=== PATIENT | male | born 1995 | race Caucasian/White ===

== ENCOUNTER 2017-09-09 01:23 | Emergency (ER) | payer OTHER ==
--- NOTE | 2017-09-09 01:56 | ED Physician Documentation ---
PD HPI NVD - Stated complaint Stated Complaint: DIARRHEA - Chief complaint Chief Complaint: Abd Pain - History obtained from History obtained from: Patient - History of Present Illness Timing - onset: Today Timing - details: Gradual onset Pain level now: 0 Associated symptoms: No: Fever, Abdominal pain Improved by: No: Eating, Laying still, Vomiting, BM, Position, Meds Worsened by: Other (no exacerbating factors) Similar symptoms before: Has not had sx before Recently seen: Not recently seen - Additonal information Additional information: c/o diarrhea since this morning, nausea but no vomiting, tolerating PO. intermittent diffuse abdominal cramping pain. Review of Systems Constitutional: denies: Fever Respiratory: reports: Reviewed and negative GI: reports: Abdominal Pain (mild, intermittent/episodic cramping), Nausea, Diarrhea. denies: Vomiting : denies: Dysuria, Frequency PD PAST MEDICAL HISTORY - Past Medical History Past Medical History: No - Past Surgical History Past Surgical History: Yes - Present Medications Home Medications: Ambulatory Orders Medication Instructions Recorded Confirmed Diphenoxylate HCl/Atropine 1 each PO Q6HR PRN #14 tablet 09/09/17 [Diphenoxylate-Atrop 2.5-0.025] Ondansetron Odt [Zofran] 4 mg TL Q6H PRN #10 tablet 09/09/17 - Allergies Allergies/Adverse Reactions: Allergies Allergy/AdvReac Type Severity Reaction Status Date / Time No Known Drug Allergies Allergy Verified 09/09/17 01:29 - Social History Does the pt smoke?: No Smoking Status: Never smoker Does the pt drink ETOH?: Yes Does the pt have substance abuse?: No - Immunizations Immunizations are current?: Yes - POLST Patient has POLST: No PD ED PE NORMAL - Vitals Vital signs reviewed: Yes - General General: Alert and oriented X 3, No acute distress, Well developed/nourished - HEENT HEENT: Moist mucous membranes - Cardiac Cardiac: RRR, No murmur - Respiratory Respiratory: No respiratory distress, Clear bilaterally - Abdomen Abdomen: Normal bowel sounds, Soft, Non tender, Non distended - Derm Derm: Normal color, Warm and dry Results - Vitals Vitals: Vital Signs - 24 hr 09/09/17 09/09/17 01:29 02:33 Temperature 36.2 C L Heart Rate 64 61 Respiratory 16 16 Rate Blood Pressure 161/89 H 141/79 H O2 Saturation 98 98 Oxygen O2 Source Room air PD MEDICAL DECISION MAKING - ED course Complexity details: considered differential, d/w patient ED course: diarrhea with mild abdominal cramping, nontender on abdominal exam. nausea without vomiting and is tolerating PO, MMM on exam. will treat symptoms with zofran and lomotil, defer testing or further treatment until and unless symptoms worsen or new symptoms develop; patient agrees with, and is comfortable with, this plan. Departure - Departure Disposition: Home, Self Care Clinical Impression: Diarrhea Condition: Good Instructions: ED Diarrhea Viral Follow-Up: HALEIGH Huntley [Provider Group] Prescriptions: Diphenoxylate HCl/Atropine [Diphenoxylate-Atrop 2.5-0.025] 1 each PO Q6HR PRN # 14 tablet PRN Reason: Diarrhea Ondansetron Odt [Zofran] 4 mg TL Q6H PRN #10 tablet PRN Reason: Nausea / Vomiting Forms: Activity restrictions Discharge Date/Time: 09/09/17 02:37
[2017-09-09] MEDS ORDERED: ONDANSETRON ODT 4 MG TABLET TL STA (02:15)
[2017-09-09] MEDS ORDERED: DIPHENOX/ATROPINE 2.5/0.025 MG TABLET PO STA (02:15)
[2017-09-09 02:37] VITALS: BP 141/79
== END 2017-09-09 02:37 | disposition home or self-care (01) ==
LOC: ED 01:23
DX: R19.7 Diarrhea, unspecified (principal); R10.9 Unspecified abdominal pain; R11.0 Nausea
CPT/HCPCS: 99283; A9270; Q0162

== ENCOUNTER 2017-10-20 05:44 | Emergency (ER) | payer OTHER ==
[2017-10-20 05:50] VITALS: BP 151/96
[2017-10-20] MEDS ORDERED: ONDANSETRON ODT 4 MG TABLET TL STA (05:53)
--- NOTE | 2017-10-20 06:01 | ED Physician Documentation ---
PD HPI NVD - Stated complaint Stated Complaint: FLU LIKE SYMPTOMS - Chief complaint Chief Complaint: Abd Pain - History obtained from History obtained from: Patient - History of Present Illness Timing - onset: Today Timing - details: Abrupt onset Associated symptoms: Abdominal pain. No: Fever Contributing factors: Sick contact Similar symptoms before: No diagnosis Recently seen: Not recently seen - Additonal information Additional information: Patient is a 22 year old male with no significant past medical history who is presenting to the emergency department for nausea, vomiting and diarrhea. Patient states that his and child had the "flu" this past week. patient woke up overnight due to nausea and had two episodes of vomiting and two episodes of diarrhea. Review of Systems Constitutional: reports: Myalgias. denies: Fever, Chills Eyes: reports: Reviewed and negative Ears: reports: Reviewed and negative Nose: reports: Reviewed and negative Throat: reports: Reviewed and negative Cardiac: denies: Chest pain / pressure Respiratory: denies: Dyspnea, Cough, Wheezing GI: reports: Abdominal Pain, Nausea, Vomiting, Diarrhea. denies: Bloody / black stool : reports: Reviewed and negative Skin: reports: Reviewed and negative Neurologic: denies: Focal weakness, Near syncope, Syncope, Altered mental status Immunocompromised: denies: Immunocompromised PD PAST MEDICAL HISTORY - Past Medical History Past Medical History: No - Past Surgical History Past Surgical History: Yes - Present Medications Home Medications: Ambulatory Orders Medication Instructions Recorded Confirmed Dicyclomine [Bentyl] 10 mg PO QID #14 capsule 10/20/17 Ondansetron Odt [Zofran] 4 mg TL Q6H PRN #14 tablet 10/20/17 - Allergies Allergies/Adverse Reactions: Allergies Allergy/AdvReac Type Severity Reaction Status Date / Time No Known Drug Allergies Allergy Verified 10/20/17 05:50 - Social History Does the pt smoke?: No Smoking Status: Never smoker Does the pt drink ETOH?: Yes Does the pt have substance abuse?: No - Immunizations Immunizations are current?: Yes - POLST Patient has POLST: No PD ED PE NORMAL - Vitals Vital signs reviewed: Yes - General General: Alert and oriented X 3, No acute distress - HEENT HEENT: Atraumatic, PERRL, Moist mucous membranes - Neck Neck: Supple, no meningeal sign - Cardiac Cardiac: RRR, No murmur - Respiratory Respiratory: No respiratory distress - Abdomen Abdomen: Soft, Non distended - Derm Derm: Normal color, Warm and dry, No rash - Extremities Extremities: No deformity, Normal ROM s pain, No calf tenderness / cord - Neuro Neuro: Alert and oriented X 3, No motor deficit, No sensory deficit, Normal speech - Psych Psych: Normal mood PD ED PE EXPANDED - Abdomen Abdomen: Tender to palpation, Generalized/diffuse. No: Rebound, Guarding Results - Vitals Vitals: Vital Signs - 24 hr 10/20/17 05:48 Temperature 36.8 C Heart Rate 75 Respiratory 18 Rate Blood Pressure 151/96 H O2 Saturation 97 Oxygen O2 Source Room air PD MEDICAL DECISION MAKING - ED course Complexity details: reviewed old records, reviewed results, re-evaluated patient , considered differential, d/w patient ED course: Patient was seen and examined at bedside. patient had normal vital signs. patient was treated with zofran 4mg. patient required no imaging or further diagnostics and was stable for discharge with outpatient follow up. Departure - Departure Disposition: Home, Self Care Clinical Impression: Gastroenteritis Condition: Good Instructions: ED Gastroenteritis Viral Follow-Up: primary,care provider [Other] - Within 3 Days Prescriptions: Dicyclomine [Bentyl] 10 mg PO QID #14 capsule Ondansetron Odt [Zofran] 4 mg TL Q6H PRN #14 tablet PRN Reason: Nausea / Vomiting Comments: Your symptoms are likely viral in nature. You should take the zofran for nausea and stay well hydrated with water and electrolyte solution. You should follow up with your doctor if your symptoms last for more than the next 3-5 days. You may return to the emergency department at any time for new, worsening or uncontrollable symptoms. Forms: Activity restrictions
== END 2017-10-20 06:10 | disposition home or self-care (01) ==
LOC: ED 05:44
DX: K52.9 Noninfective gastroenteritis and colitis, unspecified (principal)
CPT/HCPCS: 99283; Q0162

== ENCOUNTER 2017-12-22 07:35 | Outpatient (CLI) | payer OTHER ==
--- NOTE | 2017-12-22 09:20 | MRI Report ---
EXAM: MRI LUMBAR SPINE WITHOUT CONTRAST EXAM DATE: 12/22/2017 08:35 AM. CLINICAL HISTORY: LOW BACK PAIN. Pain and numbness radiates down the mid to posterior thighs when dri ving or sitting. COMPARISON: None. TECHNIQUE: Multiplanar, multisequence T1-weighted and fluid-sensitive sequences of the lumbar spine f rom T12 to S1 without contrast. Other: None. FINDINGS: Spinal Cord: The conus terminates at L1. The conus medullaris and cauda equina are unremarkable. The spinal canal is adequate. Alignment: No scoliosis or spondylolisthesis. Bone Marrow: Five [id number] lumbar vertebral bodies are assumed. No gross fractures or bone les ions. No bone marrow edema. Disk Levels/Facets: T12-L1: Unremarkable. L1-L2: Unremarkable. L2-L3: Unremarkable. L3-L4: Unremarkable. L4-L5: Unremarkable. L5-S1: Unremarkable. Musculature: Normal. No edema or fatty atrophy. Other: The partially visualized retroperitoneum is unremarkable. IMPRESSION: 1. Unremarkable MRI of the lumbar spine. No significant spondylosis. No stenosis. No bony abnormaliti es appreciated. Comment: The following findings are so common in adults without low back pain that while we report th eir presence, they must be interpreted with caution and in the context of the clinical situation. (Re demario Agudelo et al, Spine 2001) Prevalence of findings in patients without low back pain: Disk degeneration (any evidence): 92% Disk desiccation/T2 signal loss: 83% Disk height loss: 56% Disk bulge: 64% Disk protrusion: 32% Annular tear/high intensity zone: 38% [facility] Referring Provider Line: [phone] SITE ID: [id number]
== END 2017-12-22 07:36 | disposition home or self-care (01) ==
LOC: DI 07:35
PROVIDERS: ATTEND Nurse Practitioner Family
DX: M54.5 Low back pain (principal)
CPT/HCPCS: 72148